=== PATIENT | male | born 1955 | race African-American/Black ===

== ENCOUNTER 2017-05-03 18:50 | Emergency (ER) | payer MEDICAID ==
[~2017-05-03 18:50] MED LIST: ASPI-1159 PO; BLOO-1113; GABAPENTIN; HUMALOG; SYRI-219
== END 2017-05-03 21:55 | disposition left against medical advice (07) ==
LOC: ER 21:01
DX: Z53.21 Procedure and treatment not carried out due to patient leaving prior to being seen by health care provider (principal)

== ENCOUNTER 2018-08-14 16:11 | Inpatient (IN) | payer MEDICAID ==
[~2018-08-14] VITALS: Ht 175.3 cm; Wt 68.0 kg
[~2018-08-14 16:11] MED LIST changes: -ASPI-1159 PO; +ASPI-1393 PO
[2018-08-14] MEDS ORDERED: SODIUM CHLORIDE 0.9% 1,000 ML IV ONE (16:49)
[2018-08-14] MEDS ORDERED: MORPHINE SULFATE 4 MG/ML CPJ (NOT FOR IM USE) IV STA (16:49)
[2018-08-14] MEDS ORDERED: ONDANSETRON HCL 4MG/2ML INJ IV STA (16:49)
[2018-08-14] MEDS ORDERED: FAMOTIDINE 20MG/2ML VIAL IV ONE (17:00)
[2018-08-14 17:11] LABS: BASOPHILS % 0.5 % (0.0-2.0); HEMATOCRIT. 45.2 % (42.0-52.0); HEMOGLOBIN. 15.2 g/dL (14.0-18.0); LYMPHOCYTES % 7.8 % (20.0-50.0); MEAN CORPUSCULAR HEMOGLOBIN 28.5 pg (28.0-32.0); MEAN CORPUSCULAR VOLUME 84.9 fL (80.0-94.0); MONOCYTES % 6.3 % (2.0-8.0); NEUTROPHILS % 85.4 % (40.0-76.0); PLATELET 229 x1000/uL (130-400); RED BLOOD CELL COUNT 5.32 mill/uL (4.7-6.1); RED CELL DISTRIBUTION WIDTH 14.8 % (11.6-14.6)
[2018-08-14 17:13] LABS: CHLORIDE 96 mEq/L (98-107); INR 1.1; PROTHROMBIN TIME 11.4 sec (9.6-11.0)
[2018-08-14 17:17] LABS: ETHANOL BLOOD < 10 mg/dL
[2018-08-14 19:10] LABS: CLARITY URINE CLEAR (CLEAR); COLOR URINE YELLOW (YELLOW); KETONES URINE NEGATIVE (NEGATIVE); LEUKOCYTE ESTERASE URINE NEGATIVE (NEGATIVE); NITRITE URINE NEGATIVE (NEGATIVE); OCCULT BLOOD URINE 3+ (NEGATIVE); PROTEIN URINE 3+ (NEGATIVE); SPECIFIC GRAVITY URINE 1.009 (1.005-1.030); UROBILINOGEN URINE 0.2 E.U./dL (0.2-1.0)
[2018-08-14 19:25] LABS: *AMPHETAMINES SCREEN URINE NEGATIVE (NEGATIVE); *BARBITURATES SCREEN URINE NEGATIVE (NEGATIVE); *BENZODIAZEPINES SCREEN URINE NEGATIVE (NEGATIVE); *COCAINE SCREEN URINE NEGATIVE (NEGATIVE); METHADONE URINE SCREEN NEGATIVE (NEGATIVE)
[2018-08-14 19:26] LABS: CANNABINOID URINE SCREEN PRESUMTIVE POSITIVE (NEGATIVE); OPIATES URINE SCREEN PRESUMTIVE POSITIVE (NEGATIVE); PHENCYCLIDINE URINE SCREEN NEGATIVE (NEGATIVE)
[2018-08-14] MEDS ORDERED: NA PHOS,M-B/NA PHOS,DI-BA ENEMA 118ML PR PRN (19:45)
[2018-08-14] MEDS ORDERED: DEXTROSE 50% WATER 50ML SYRINGE IV PRN (19:45)
[2018-08-14] MEDS ORDERED: DIPHENHYDRAMINE 50MG/ML VIAL IV PRN (19:45)
[2018-08-14] MEDS ORDERED: LORAZEPAM 2MG/ML CPJ IV PRN (19:45)
[2018-08-14] MEDS ORDERED: ACETAMINOPHEN 325MG TABLET PO PRN (19:45)
[2018-08-14] MEDS ORDERED: IPRATROPIUM/ALBUTEROL 0.5-3(2.5)MG/3ML NEB INH PRN (19:45)
[2018-08-14] MEDS ORDERED: MAGNESIUM/ALUMINUM HYDROXIDE/SIMETHICONE 30ML UDC PO PRN (19:45)
[2018-08-14] MEDS ORDERED: GUAIFENESIN 200MG/10ML SUGAR FREE UDC PO PRN (19:45)
[2018-08-14] MEDS ORDERED: DOCUSATE SODIUM 100MG CAPSULE PO PRN (19:45)
[2018-08-14] MEDS ORDERED: HYDRALAZINE 20MG/ML VIAL IV PRN (20:00)
[2018-08-14] MEDS: HYDROCODONE/ACETAMINOPHEN 10/325MG TABLET PO PRN (20:09)
[2018-08-14 20:50] VITALS: BP 170/90
[2018-08-14] MEDS: INSULIN LISPRO 100 UNITS/ML SUBCUT SCH (21:00)
[2018-08-14 21:28] VITALS: BP 170/90
[2018-08-14] MEDS ORDERED: POTASSIUM CHLORIDE 20MEQ TABLET SR PO NR (21:30)
[2018-08-14] MEDS: CLONIDINE 0.1MG TABLET PO PRN (21:54)
[2018-08-14] MEDS: BLOOD SUGAR DIAGNOSTIC STRIP TEST SCH (21:54)
[2018-08-14] MEDS: SODIUM CHLORIDE 0.45% 1,000 ML IV SCH (22:44)
[2018-08-14] MEDS: SODIUM CHLORIDE 0.9% INJ 3ML FLUSH IVF SCH (22:44)
[2018-08-14] MEDS: LEVOFLOXACIN 500MG PREMIX 100 ML IV SCH (22:44)
[2018-08-15] VITALS (8 sets, daily range): BP systolic 107–197; BP diastolic 59–105
[2018-08-15] MEDS: BLOOD SUGAR DIAGNOSTIC STRIP TEST SCH ×4 (06:04→21:12)
[2018-08-15] MEDS: SODIUM CHLORIDE 0.9% INJ 3ML FLUSH IVF SCH ×3 (06:04→21:12)
[2018-08-15] MEDS: INSULIN LISPRO 100 UNITS/ML SUBCUT SCH ×4 (06:04→21:00)
[2018-08-15 06:16] LABS: BASOPHILS % 0.5 % (0.0-2.0); EOSINOPHILS % 0.3 % (0.0-5.0); HEMATOCRIT. 38.5 % (42.0-52.0); HEMOGLOBIN. 12.5 g/dL (14.0-18.0); LYMPHOCYTES % 19.8 % (20.0-50.0); MEAN CORPUSCULAR HEMOGLOBIN 28.1 pg (28.0-32.0); MEAN CORPUSCULAR VOLUME 86.2 fL (80.0-94.0); MEAN PLATELET VOLUME 9.4 fl (7.4-10.4); MONOCYTES % 9.7 % (2.0-8.0); NEUTROPHILS % 69.7 % (40.0-76.0); PLATELET 193 x1000/uL (130-400); RED BLOOD CELL COUNT 4.47 mill/uL (4.7-6.1); RED CELL DISTRIBUTION WIDTH 15.1 % (11.6-14.6)
[2018-08-15 06:26] LABS: CHLORIDE 104 mEq/L (98-107)
[2018-08-15 06:43] LABS: CREATINE KINASE MB FRACTION 4.7 ng/mL (0.5-3.6)
[2018-08-15 06:44] LABS: T4 FREE 1.32 ng/dL (0.76-1.46)
[2018-08-15 06:46] LABS: CREATINE KINASE 451 IU/L (39-308); LDL CHOLESTEROL 99 mg/dL (5-100)
[2018-08-15 06:47] LABS: HDL CHOLESTEROL 61 mg/dL (40-59)
[2018-08-15] MEDS: CLONIDINE 0.1MG TABLET PO PRN (08:06)
[2018-08-15] MEDS: ONDANSETRON HCL 4MG/2ML INJ IV PRN ×2 (08:45→22:17)
[2018-08-15] MEDS: HYDRALAZINE 20MG/ML VIAL IV PRN (11:33)
[2018-08-15] MEDS: SODIUM CHLORIDE 0.45% 1,000 ML IV SCH (16:39)
[2018-08-15] MEDS: LEVOFLOXACIN 500MG PREMIX 100 ML IV SCH (22:03)
[2018-08-15] MEDS: HYDROMORPHONE HCL/PF 2MG/ML CPJ IV PRN (22:17)
[2018-08-16] MEDS: CLONIDINE 0.1MG TABLET PO PRN (03:50)
[2018-08-16 03:55] VITALS: BP 160/64
[2018-08-16 05:52] LABS: BASOPHILS % 0.7 % (0.0-2.0); EOSINOPHILS % 0.8 % (0.0-5.0); HEMATOCRIT. 39.8 % (42.0-52.0); LYMPHOCYTES % 41.5 % (20.0-50.0); MEAN CORPUSCULAR HEMOGLOBIN 28.3 pg (28.0-32.0); MEAN CORPUSCULAR VOLUME 86.2 fL (80.0-94.0); MEAN PLATELET VOLUME 9.2 fl (7.4-10.4); MONOCYTES % 9.5 % (2.0-8.0); NEUTROPHILS % 47.5 % (40.0-76.0); PLATELET 207 x1000/uL (130-400); RED BLOOD CELL COUNT 4.62 mill/uL (4.7-6.1)
[2018-08-16] MEDS: SODIUM CHLORIDE 0.9% INJ 3ML FLUSH IVF SCH ×3 (06:00→21:12)
[2018-08-16] MEDS: BLOOD SUGAR DIAGNOSTIC STRIP TEST SCH ×4 (07:07→20:55)
[2018-08-16 07:56] LABS: CHLORIDE 104 mEq/L (98-107)
[2018-08-16 08:00] VITALS: BP 129/78
[2018-08-16] MEDS: INSULIN LISPRO 100 UNITS/ML SUBCUT SCH ×4 (08:10→20:55)
[2018-08-16 12:00] VITALS: BP 111/70
[2018-08-16] MEDS: SODIUM CHLORIDE 0.45% 1,000 ML IV SCH (13:15)
[2018-08-16] MEDS: ONDANSETRON HCL 4MG/2ML INJ IV PRN (13:16)
[2018-08-16] MEDS: HYDROMORPHONE HCL/PF 2MG/ML CPJ IV PRN ×2 (13:17→21:12)
[2018-08-16] MEDS: FAMOTIDINE 20MG/2ML VIAL IV SCH (15:34)
[2018-08-16 16:00] VITALS: BP 123/70
[2018-08-16 20:00] VITALS: BP 149/66
[2018-08-16] MEDS: LEVOFLOXACIN 500MG PREMIX 100 ML IV SCH (22:08)
[2018-08-17] VITALS: BP 143/78
[2018-08-17 04:00] VITALS: BP 175/86
[2018-08-17] MEDS: HYDRALAZINE 20MG/ML VIAL IV PRN ×2 (05:01→12:17)
[2018-08-17] MEDS: SODIUM CHLORIDE 0.9% INJ 3ML FLUSH IVF SCH ×3 (05:01→21:11)
[2018-08-17 06:06] LABS: BASOPHILS % 0.6 % (0.0-2.0); EOSINOPHILS % 1.9 % (0.0-5.0); HEMATOCRIT. 38.1 % (42.0-52.0); HEMOGLOBIN. 12.8 g/dL (14.0-18.0); MEAN CORPUSCULAR HEMOGLOBIN 28.8 pg (28.0-32.0); MEAN CORPUSCULAR VOLUME 85.4 fL (80.0-94.0); MONOCYTES % 9.4 % (2.0-8.0); NEUTROPHILS % 43.1 % (40.0-76.0); PLATELET 204 x1000/uL (130-400); RED BLOOD CELL COUNT 4.45 mill/uL (4.7-6.1); RED CELL DISTRIBUTION WIDTH 14.7 % (11.6-14.6)
[2018-08-17] MEDS: BLOOD SUGAR DIAGNOSTIC STRIP TEST SCH ×4 (06:41→21:09)
[2018-08-17 06:54] LABS: CHLORIDE 107 mEq/L (98-107)
[2018-08-17 08:00] VITALS: BP 181/68
[2018-08-17] MEDS: INSULIN LISPRO 100 UNITS/ML SUBCUT SCH ×4 (08:10→21:00)
[2018-08-17] MEDS: FAMOTIDINE 20MG/2ML VIAL IV SCH (09:13)
[2018-08-17] MEDS: SODIUM CHLORIDE 0.45% 1,000 ML IV SCH (09:18)
[2018-08-17] MEDS: HYDROCODONE/ACETAMINOPHEN 10/325MG TABLET PO PRN ×2 (10:37→21:09)
[2018-08-17 12:00] VITALS: BP 132/81
[2018-08-17 16:00] VITALS: BP 149/70
[2018-08-17 20:00] VITALS: BP 144/96
[2018-08-17 20:21] LABS: CREATINE KINASE 66 IU/L (39-308)
[2018-08-17 20:22] LABS: CREATINE KINASE MB FRACTION < 1.0 ng/mL (0.5-3.6)
[2018-08-17 20:23] LABS: T4 FREE 1.3 ng/dL (0.76-1.46)
[2018-08-17] MEDS: LEVOFLOXACIN 500MG PREMIX 100 ML IV SCH (21:09)
[2018-08-18] VITALS: BP 150/66
[2018-08-18 00:08] LABS: CREATINE KINASE 70 IU/L (39-308)
[2018-08-18 00:09] LABS: CREATINE KINASE MB FRACTION < 1.0 ng/mL (0.5-3.6)
[2018-08-18 04:00] VITALS: BP 163/88
[2018-08-18] MEDS: SODIUM CHLORIDE 0.9% INJ 3ML FLUSH IVF SCH ×3 (05:32→21:36)
[2018-08-18] MEDS: SODIUM CHLORIDE 0.45% 1,000 ML IV SCH (05:32)
[2018-08-18 06:50] LABS: CREATINE KINASE 61 IU/L (39-308)
[2018-08-18 06:51] LABS: CREATINE KINASE MB FRACTION < 1.0 ng/mL (0.5-3.6)
[2018-08-18] MEDS: BLOOD SUGAR DIAGNOSTIC STRIP TEST SCH ×4 (07:46→21:00)
[2018-08-18] MEDS: INSULIN LISPRO 100 UNITS/ML SUBCUT SCH ×4 (07:46→21:00)
[2018-08-18 08:00] VITALS: BP 166/83
[2018-08-18] MEDS: FAMOTIDINE 20MG/2ML VIAL IV SCH (09:10)
[2018-08-18] MEDS ORDERED: REGADENOSON 0.4 MG/5 ML IV NR (11:45)
[2018-08-18 12:00] VITALS: BP 176/74
[2018-08-18] MEDS: HYDROCODONE/ACETAMINOPHEN 10/325MG TABLET PO PRN (15:12)
[2018-08-18] MEDS: HYDRALAZINE 20MG/ML VIAL IV PRN (15:15)
[2018-08-18 16:00] VITALS: BP 164/74
[2018-08-18 20:00] VITALS: BP 153/70
[2018-08-18] MEDS: LEVOFLOXACIN 500MG PREMIX 100 ML IV SCH (21:36)
[2018-08-19] VITALS: BP 152/56
[2018-08-19] MEDS: SODIUM CHLORIDE 0.45% 1,000 ML IV SCH ×2 (00:54→21:33)
[2018-08-19 04:00] VITALS: BP 130/68
[2018-08-19] MEDS: SODIUM CHLORIDE 0.9% INJ 3ML FLUSH IVF SCH ×3 (06:35→21:32)
[2018-08-19] MEDS: BLOOD SUGAR DIAGNOSTIC STRIP TEST SCH ×4 (06:35→21:05)
[2018-08-19 08:00] VITALS: BP 171/83
[2018-08-19] MEDS: INSULIN LISPRO 100 UNITS/ML SUBCUT SCH ×4 (08:10→21:00)
[2018-08-19] MEDS: FAMOTIDINE 20MG/2ML VIAL IV SCH (08:38)
[2018-08-19] MEDS: HYDROMORPHONE HCL/PF 2MG/ML CPJ IV PRN (09:04)
[2018-08-19 12:00] VITALS: BP 145/70
[2018-08-19 16:00] VITALS: BP 168/93
[2018-08-19 20:00] VITALS: BP 125/73
[2018-08-19] MEDS: LEVOFLOXACIN 500MG PREMIX 100 ML IV SCH (21:32)
[2018-08-20] VITALS (10 sets, daily range): BP systolic 102–176; BP diastolic 64–85
[2018-08-20] MEDS: SODIUM CHLORIDE 0.9% INJ 3ML FLUSH IVF SCH ×3 (05:44→22:00)
[2018-08-20] MEDS: HYDRALAZINE 20MG/ML VIAL IV PRN (05:58)
[2018-08-20 06:08] LABS: BASOPHILS % 0.4 % (0.0-2.0); EOSINOPHILS % 2.9 % (0.0-5.0); HEMOGLOBIN. 12.6 g/dL (14.0-18.0); LYMPHOCYTES % 39.2 % (20.0-50.0); MEAN CORPUSCULAR HEMOGLOBIN 28.5 pg (28.0-32.0); MEAN CORPUSCULAR VOLUME 86.4 fL (80.0-94.0); MEAN PLATELET VOLUME 9.1 fl (7.4-10.4); MONOCYTES % 8.9 % (2.0-8.0); NEUTROPHILS % 48.6 % (40.0-76.0); PLATELET 218 x1000/uL (130-400); RED CELL DISTRIBUTION WIDTH 14.5 % (11.6-14.6)
[2018-08-20] MEDS: BLOOD SUGAR DIAGNOSTIC STRIP TEST SCH ×4 (06:43→23:02)
[2018-08-20 07:10] LABS: CHLORIDE 108 mEq/L (98-107)
[2018-08-20] MEDS: INSULIN LISPRO 100 UNITS/ML SUBCUT SCH ×4 (08:10→23:06)
[2018-08-20] MEDS ORDERED: REGADENOSON 0.4 MG/5 ML IV ONE (08:42)
[2018-08-20] MEDS: FAMOTIDINE 20MG/2ML VIAL IV SCH (10:02)
[2018-08-20] MEDS: AMLODIPINE 10MG TABLET PO SCH (13:17)
[2018-08-20] MEDS: HYDRALAZINE HCL 50MG TABLET PO SCH ×2 (14:36→22:59)
[2018-08-20] MEDS: SODIUM CHLORIDE 0.45% 1,000 ML IV SCH (15:52)
[2018-08-20] MEDS: HYDROCODONE/ACETAMINOPHEN 5/325MG TABLET PO PRN (18:31)
[2018-08-20] MEDS: LEVOFLOXACIN 500MG PREMIX 100 ML IV SCH (22:00)
[2018-08-21] VITALS: BP 141/64
[2018-08-21 04:00] VITALS: BP 151/78
[2018-08-21] MEDS: SODIUM CHLORIDE 0.9% INJ 3ML FLUSH IVF SCH ×2 (06:00→14:00)
[2018-08-21] MEDS: HYDRALAZINE HCL 50MG TABLET PO SCH ×2 (06:38→13:56)
[2018-08-21] MEDS: BLOOD SUGAR DIAGNOSTIC STRIP TEST SCH ×2 (06:38→12:40)
[2018-08-21] MEDS: INSULIN LISPRO 100 UNITS/ML SUBCUT SCH ×2 (06:41→13:10)
[2018-08-21 08:00] VITALS: BP 138/69
[2018-08-21] MEDS: AMLODIPINE 10MG TABLET PO SCH (08:55)
[2018-08-21] MEDS: HYDROCODONE/ACETAMINOPHEN 5/325MG TABLET PO PRN (08:56)
[2018-08-21 12:00] VITALS: BP 173/82
[2018-08-21 13:20] VITALS: BP 141/75
[2018-08-21] MEDS: SODIUM CHLORIDE 0.45% 1,000 ML IV SCH (13:30)
[2018-08-21] MEDS ORDERED: FAMOTIDINE 20MG TABLET PO SCH (21:00)
== END 2018-08-21 17:04 | disposition home or self-care (01) | DRG 253 ==
LOC: ER 16:11 → EDBEDREQ 16:57 → 5WST 19:07 → EDBEDREQTM 19:09 → EDBEDREQ 19:09 → ENRESERV 19:26 → 7WST 08-15 20:30
PROVIDERS: ADMIT Internal Medicine; ATTEND Internal Medicine
DX: K92.0 Hematemesis (principal); R65.10 Systemic inflammatory response syndrome (SIRS) of non-infectious origin without acute organ dysfunction; E87.1 Hypo-osmolality and hyponatremia; E11.9 Type 2 diabetes mellitus without complications; D64.9 Anemia, unspecified; B18.2 Chronic viral hepatitis C; E78.5 Hyperlipidemia, unspecified; N39.0 Urinary tract infection, site not specified; E87.6 Hypokalemia; N20.0 Calculus of kidney; I10 Essential (primary) hypertension; G89.29 Other chronic pain; F19.90 Other psychoactive substance use, unspecified, uncomplicated; R00.1 Bradycardia, unspecified; F17.200 Nicotine dependence, unspecified, uncomplicated; Z86.19 Personal history of other infectious and parasitic diseases; Z85.46 Personal history of malignant neoplasm of prostate; Z98.42 Cataract extraction status, left eye; Z98.41 Cataract extraction status, right eye; Z79.899 Other long term (current) drug therapy; Z79.82 Long term (current) use of aspirin; Z79.84 Long term (current) use of oral hypoglycemic drugs
CPT/HCPCS: 36415; 71045; 74176; 78452; 80048; 80061; 80076; 80305; 80320; 82270; 82550; 82553; 82962; 83036; 83880; 84439; 84443; 84484; 85379; 93005; 93017; 93306; 93970; 96374; 96375; 99285; A9500; J0360; J1170; J1815; J1956; J2060; J2270; J2405; J2785; J3490; J7030; G0480

== ENCOUNTER 2020-08-31 19:08 | Inpatient (IN) | payer MEDICAID ==
[~2020-08-31] VITALS: Ht 180.3 cm; Wt 73.9 kg
[~2020-08-31 19:08] MED LIST changes: -ASPI-1393 PO; +ASPI-1497 PO; -BLOO-1113; -GABAPENTIN; -HUMALOG; -SYRI-219
[2020-08-31] MEDS ORDERED: ONDANSETRON HCL 4MG/2ML INJ IV STA ×2 (20:33→21:33)
[2020-08-31] MEDS ORDERED: SODIUM CHLORIDE 0.9% 1,000 ML IV ONE ×2 (20:45→21:45)
[2020-08-31 21:22] LABS: BASOPHILS % 0.7 % (0.0-2.0); EOSINOPHILS % 0.2 % (0.0-5.0); HEMATOCRIT. 32.6 % (42.0-52.0); LYMPHOCYTES % 8.9 % (20.0-50.0); MEAN CORPUSCULAR HEMOGLOBIN 28.3 pg (28.0-32.0); MEAN CORPUSCULAR VOLUME 83.9 fL (80.0-94.0); MEAN PLATELET VOLUME 8.1 fl (7.4-10.4); MONOCYTES % 8.3 % (2.0-8.0); NEUTROPHILS % 81.9 % (40.0-76.0); PLATELET 343 x1000/uL (130-400); RED BLOOD CELL COUNT 3.88 mill/uL (4.7-6.1)
[2020-08-31 21:27] LABS: CHLORIDE 105 mEq/L (98-107)
[2020-08-31] MEDS ORDERED: MORPHINE SULFATE 4 MG/ML CPJ (NOT FOR IM USE) IV STA (21:33)
[2020-08-31] MEDS ORDERED: HYDRALAZINE 20MG/ML VIAL IV ONE (21:45)
[2020-08-31 22:49] LABS: CLARITY URINE CLEAR (CLEAR); COLOR URINE YELLOW (YELLOW); KETONES URINE 1+ (NEGATIVE); LEUKOCYTE ESTERASE URINE NEGATIVE (NEGATIVE); NITRITE URINE NEGATIVE (NEGATIVE); OCCULT BLOOD URINE 1+ (NEGATIVE); PROTEIN URINE 3+ (NEGATIVE); SPECIFIC GRAVITY URINE 1.015 (1.005-1.030); UROBILINOGEN URINE 0.2 E.U./dL (0.2-1.0)
[2020-08-31] MEDS ORDERED: CLONIDINE 0.2MG TABLET PO ONE (23:15)
[2020-09-01] VITALS (60 sets, daily range): BP systolic 96–179; BP diastolic 53–123
[2020-09-01] MEDS ORDERED: LEVOFLOXACIN 750MG PREMIX 150 ML IV ONE (00:15)
[2020-09-01] MEDS ORDERED: HYDRALAZINE 20MG/ML VIAL IV ONE (00:15)
[2020-09-01] MEDS ORDERED: METRONIDAZOLE 500 MG PREMIX 100 ML IV ONE (00:15)
[2020-09-01] MEDS ORDERED: NITROGLYCERIN 50MG PREMIX 250 ML IV ONE ×2 (01:30→08:30)
[2020-09-01] MEDS ORDERED: HYDROMORPHONE HCL/PF 2MG/ML CPJ IV PRN (09:15)
[2020-09-01] MEDS: AMLODIPINE 10MG TABLET PO SCH (09:26)
[2020-09-01] MEDS: SODIUM CHLORIDE 0.9% 1,000 ML IV SCH ×2 (09:26→20:34)
[2020-09-01] MEDS ORDERED: DEXTROSE 50% WATER 50ML SYRINGE IV PRN (10:15)
[2020-09-01] MEDS: PIPERACILLIN/TAZOBACTAM 3.375 G in DEXT 5% WATER 100 ML IV SCH ×2 (11:02→18:20)
[2020-09-01] MEDS: LOSARTAN POTASSIUM 100 MG TABLET PO SCH (11:02)
[2020-09-01] MEDS: PANTOPRAZOLE SODIUM 40 MG/VIAL IV SCH (11:03)
[2020-09-01] MEDS ORDERED: NITROGLYCERIN 50MG PREMIX 250 ML IV PRN (11:15)
[2020-09-01] MEDS: MORPHINE SULFATE 2 MG/ML CPJ (NOT FOR IM USE) IV PRN ×3 (11:35→20:35)
[2020-09-01 12:41] LABS: BASOPHILS % 0.6 % (0.0-2.0); HEMATOCRIT. 28.9 % (42.0-52.0); HEMOGLOBIN. 9.7 g/dL (14.0-18.0); MEAN CORPUSCULAR HEMOGLOBIN 28.2 pg (28.0-32.0); MEAN CORPUSCULAR VOLUME 83.6 fL (80.0-94.0); MONOCYTES % 6.4 % (2.0-8.0); PLATELET 341 x1000/uL (130-400); RED BLOOD CELL COUNT 3.46 mill/uL (4.7-6.1); RED CELL DISTRIBUTION WIDTH 14.7 % (11.6-14.6)
[2020-09-01] MEDS: BLOOD SUGAR DIAGNOSTIC STRIP TEST SCH ×3 (12:50→20:45)
[2020-09-01 12:53] LABS: CHLORIDE 102 mEq/L (98-107)
[2020-09-01] MEDS: INSULIN LISPRO 100 UNITS/ML SUBCUT SCH ×3 (13:20→20:45)
[2020-09-01 15:58] LABS: *AMPHETAMINES SCREEN URINE NEGATIVE (NEGATIVE); *BARBITURATES SCREEN URINE NEGATIVE (NEGATIVE); *BENZODIAZEPINES SCREEN URINE NEGATIVE (NEGATIVE); *COCAINE SCREEN URINE PRESUMTIVE POSITIVE (NEGATIVE); METHADONE URINE SCREEN NEGATIVE (NEGATIVE); OPIATES URINE SCREEN PRESUMTIVE POSITIVE (NEGATIVE)
[2020-09-01 15:59] LABS: CANNABINOID URINE SCREEN PRESUMTIVE POSITIVE (NEGATIVE); PHENCYCLIDINE URINE SCREEN NEGATIVE (NEGATIVE)
[2020-09-01] MEDS: ONDANSETRON HCL 4MG/2ML INJ IV PRN (20:34)
[2020-09-02] VITALS (92 sets, daily range): BP systolic 106–158; BP diastolic 54–90
[2020-09-02] MEDS: ONDANSETRON HCL 4MG/2ML INJ IV PRN ×5 (00:02→20:21)
[2020-09-02] MEDS: MORPHINE SULFATE 2 MG/ML CPJ (NOT FOR IM USE) IV PRN ×6 (00:02→20:21)
[2020-09-02] MEDS: PIPERACILLIN/TAZOBACTAM 3.375 G in DEXT 5% WATER 100 ML IV SCH ×3 (04:07→18:43)
[2020-09-02 05:44] LABS: BASOPHILS % 0.5 % (0.0-2.0); EOSINOPHILS % 0.7 % (0.0-5.0); HEMATOCRIT. 28.4 % (42.0-52.0); HEMOGLOBIN. 9.8 g/dL (14.0-18.0); LYMPHOCYTES % 22.3 % (20.0-50.0); MEAN PLATELET VOLUME 8.2 fl (7.4-10.4); MONOCYTES % 10.6 % (2.0-8.0); NEUTROPHILS % 65.9 % (40.0-76.0); PLATELET 295 x1000/uL (130-400); RED BLOOD CELL COUNT 3.38 mill/uL (4.7-6.1); RED CELL DISTRIBUTION WIDTH 15.3 % (11.6-14.6)
[2020-09-02] MEDS: BLOOD SUGAR DIAGNOSTIC STRIP TEST SCH ×4 (07:58→20:15)
[2020-09-02] MEDS: PANTOPRAZOLE SODIUM 40 MG/VIAL IV SCH (08:08)
[2020-09-02] MEDS: SODIUM CHLORIDE 0.9% 1,000 ML IV SCH ×2 (08:09→21:55)
[2020-09-02] MEDS: LOSARTAN POTASSIUM 100 MG TABLET PO SCH (08:09)
[2020-09-02] MEDS: AMLODIPINE 10MG TABLET PO SCH (08:09)
[2020-09-02] MEDS: INSULIN LISPRO 100 UNITS/ML SUBCUT SCH ×4 (08:20→20:15)
[2020-09-03] VITALS (88 sets, daily range): BP systolic 112–199; BP diastolic 59–117
[2020-09-03] MEDS: MORPHINE SULFATE 2 MG/ML CPJ (NOT FOR IM USE) IV PRN ×6 (00:38→21:06)
[2020-09-03] MEDS: ONDANSETRON HCL 4MG/2ML INJ IV PRN ×2 (00:38→05:27)
[2020-09-03] MEDS: PIPERACILLIN/TAZOBACTAM 3.375 G in DEXT 5% WATER 100 ML IV SCH ×3 (02:42→18:01)
[2020-09-03 05:25] LABS: CHLORIDE 111 mEq/L (98-107)
[2020-09-03] MEDS: BLOOD SUGAR DIAGNOSTIC STRIP TEST SCH ×4 (07:50→21:00)
[2020-09-03] MEDS: INSULIN LISPRO 100 UNITS/ML SUBCUT SCH ×4 (08:20→21:00)
[2020-09-03] MEDS: PANTOPRAZOLE SODIUM 40 MG/VIAL IV SCH (08:49)
[2020-09-03] MEDS: LOSARTAN POTASSIUM 100 MG TABLET PO SCH (08:49)
[2020-09-03] MEDS: AMLODIPINE 10MG TABLET PO SCH (08:50)
[2020-09-03] MEDS ORDERED: DIATR MEGLU/DIATRIZOATE SOLN 30ML PO SCH (09:30)
[2020-09-03] MEDS: SODIUM CHLORIDE 0.9% 1,000 ML IV SCH (11:39)
[2020-09-03] MEDS: HYDRALAZINE 20MG/ML VIAL IV PRN (11:55)
[2020-09-03] MEDS ORDERED: IOHEXOL-300 100 ML BOTTLE ONE ×2 (13:57→16:08)
[2020-09-03] MEDS ORDERED: NON FORMULARY PATIENT HOME MED PO SCH (14:15)
[2020-09-03] MEDS: CLONIDINE 0.1MG TABLET PO PRN (14:17)
[2020-09-03] MEDS: MINOXIDIL 2.5MG TABLET PO SCH ×2 (14:29→21:07)
[2020-09-03] MEDS ORDERED: LORAZEPAM 2MG/ML CPJ IV PRN (18:45)
[2020-09-03] MEDS: METOPROLOL TARTRATE 50MG TABLET PO SCH (21:06)
[2020-09-04] VITALS (86 sets, daily range): BP systolic 96–191; BP diastolic 43–110
[2020-09-04] MEDS: PIPERACILLIN/TAZOBACTAM 3.375 G in DEXT 5% WATER 100 ML IV SCH ×5 (00:13→23:58)
[2020-09-04] MEDS: SODIUM CHLORIDE 0.9% 1,000 ML IV SCH ×2 (01:07→13:33)
[2020-09-04] MEDS: MORPHINE SULFATE 2 MG/ML CPJ (NOT FOR IM USE) IV PRN ×6 (01:13→21:48)
[2020-09-04] MEDS: CLONIDINE 0.1MG TABLET PO PRN ×2 (01:13→14:15)
[2020-09-04 05:58] LABS: BASOPHILS % 0.8 % (0.0-2.0); EOSINOPHILS % 2.3 % (0.0-5.0); HEMATOCRIT. 28.3 % (42.0-52.0); HEMOGLOBIN. 9.4 g/dL (14.0-18.0); LYMPHOCYTES % 20.8 % (20.0-50.0); MEAN CORPUSCULAR HEMOGLOBIN 28.4 pg (28.0-32.0); MEAN PLATELET VOLUME 8.4 fl (7.4-10.4); MONOCYTES % 12.8 % (2.0-8.0); NEUTROPHILS % 63.3 % (40.0-76.0); PLATELET 277 x1000/uL (130-400); RED BLOOD CELL COUNT 3.33 mill/uL (4.7-6.1); RED CELL DISTRIBUTION WIDTH 14.6 % (11.6-14.6)
[2020-09-04 06:08] LABS: CHLORIDE 111 mEq/L (98-107)
[2020-09-04] MEDS: BLOOD SUGAR DIAGNOSTIC STRIP TEST SCH ×4 (06:27→21:26)
[2020-09-04] MEDS: INSULIN LISPRO 100 UNITS/ML SUBCUT SCH ×4 (06:34→21:00)
[2020-09-04] MEDS: PANTOPRAZOLE SODIUM 40 MG/VIAL IV SCH (08:57)
[2020-09-04] MEDS: LOSARTAN POTASSIUM 100 MG TABLET PO SCH (08:58)
[2020-09-04] MEDS: MINOXIDIL 2.5MG TABLET PO SCH ×2 (08:58→21:48)
[2020-09-04] MEDS: METOPROLOL TARTRATE 50MG TABLET PO SCH ×2 (08:58→21:00)
[2020-09-04] MEDS: AMLODIPINE 10MG TABLET PO SCH (08:58)
[2020-09-04] MEDS: TAMSULOSIN HCL 0.4MG SR CAPSULE PO SCH (13:33)
[2020-09-04] MEDS: HYDRALAZINE 20MG/ML VIAL IV PRN (14:10)
[2020-09-05] VITALS (28 sets, daily range): BP systolic 122–177; BP diastolic 59–95
[2020-09-05] MEDS: HYDRALAZINE 20MG/ML VIAL IV PRN (01:53)
[2020-09-05] MEDS: SODIUM CHLORIDE 0.9% 1,000 ML IV SCH ×2 (03:47→18:47)
[2020-09-05] MEDS: MORPHINE SULFATE 2 MG/ML CPJ (NOT FOR IM USE) IV PRN ×3 (04:56→20:23)
[2020-09-05] MEDS: PIPERACILLIN/TAZOBACTAM 3.375 G in DEXT 5% WATER 100 ML IV SCH ×3 (05:41→18:47)
[2020-09-05] MEDS: HYDROCODONE/ACETAMINOPHEN 10/325MG TABLET PO PRN (05:41)
[2020-09-05 06:00] LABS: BASOPHILS % 0.6 % (0.0-2.0); EOSINOPHILS % 1.9 % (0.0-5.0); HEMATOCRIT. 34.8 % (42.0-52.0); HEMOGLOBIN. 11.4 g/dL (14.0-18.0); LYMPHOCYTES % 19.6 % (20.0-50.0); MEAN CORPUSCULAR HEMOGLOBIN 28.1 pg (28.0-32.0); MEAN CORPUSCULAR VOLUME 85.5 fL (80.0-94.0); MEAN PLATELET VOLUME 8.6 fl (7.4-10.4); MONOCYTES % 9.1 % (2.0-8.0); NEUTROPHILS % 68.8 % (40.0-76.0); PLATELET 340 x1000/uL (130-400); RED BLOOD CELL COUNT 4.06 mill/uL (4.7-6.1)
[2020-09-05 06:10] LABS: CHLORIDE 110 mEq/L (98-107)
[2020-09-05] MEDS: BLOOD SUGAR DIAGNOSTIC STRIP TEST SCH ×4 (07:50→20:23)
[2020-09-05] MEDS: AMLODIPINE 10MG TABLET PO SCH (09:17)
[2020-09-05] MEDS: LOSARTAN POTASSIUM 100 MG TABLET PO SCH (09:17)
[2020-09-05] MEDS: METOPROLOL TARTRATE 50MG TABLET PO SCH ×2 (09:18→20:22)
[2020-09-05] MEDS: TAMSULOSIN HCL 0.4MG SR CAPSULE PO SCH (09:18)
[2020-09-05] MEDS: MINOXIDIL 2.5MG TABLET PO SCH ×2 (09:19→20:22)
[2020-09-05] MEDS: PANTOPRAZOLE SODIUM 40 MG/VIAL IV SCH (09:19)
[2020-09-05] MEDS: INSULIN LISPRO 100 UNITS/ML SUBCUT SCH ×3 (12:44→21:11)
[2020-09-06] VITALS: BP_SYST 129; BP_SYST 170; BP_DIAS 57; BP_DIAS 76
[2020-09-06] MEDS: PIPERACILLIN/TAZOBACTAM 3.375 G in DEXT 5% WATER 100 ML IV SCH ×3 (00:35→12:32)
[2020-09-06] MEDS: MORPHINE SULFATE 2 MG/ML CPJ (NOT FOR IM USE) IV PRN ×5 (01:00→23:42)
[2020-09-06] MEDS: HYDROCODONE/ACETAMINOPHEN 10/325MG TABLET PO PRN ×2 (03:23→20:00)
[2020-09-06 04:00] VITALS: BP 179/72
[2020-09-06] MEDS: HYDRALAZINE 20MG/ML VIAL IV PRN (06:02)
[2020-09-06] MEDS: SODIUM CHLORIDE 0.9% 1,000 ML IV SCH ×2 (06:02→19:47)
[2020-09-06] MEDS: BLOOD SUGAR DIAGNOSTIC STRIP TEST SCH ×4 (06:02→21:10)
[2020-09-06] MEDS: INSULIN LISPRO 100 UNITS/ML SUBCUT SCH ×4 (07:02→21:09)
[2020-09-06 08:00] VITALS: BP 175/85
[2020-09-06] MEDS: PANTOPRAZOLE SODIUM 40 MG/VIAL IV SCH (09:07)
[2020-09-06] MEDS: TAMSULOSIN HCL 0.4MG SR CAPSULE PO SCH (09:07)
[2020-09-06] MEDS: AMLODIPINE 10MG TABLET PO SCH (09:09)
[2020-09-06] MEDS: LOSARTAN POTASSIUM 100 MG TABLET PO SCH (09:09)
[2020-09-06] MEDS: METOPROLOL TARTRATE 50MG TABLET PO SCH ×2 (09:10→21:08)
[2020-09-06] MEDS: MINOXIDIL 2.5MG TABLET PO SCH ×2 (09:10→21:07)
[2020-09-06 12:00] VITALS: BP 142/62
[2020-09-06] MEDS ORDERED: LOPERAMIDE HCL 2MG CAPSULE PO PRN (12:30)
[2020-09-06] MEDS ORDERED: HYDRALAZINE HCL 50MG TABLET PO NR (14:30)
[2020-09-06 16:00] VITALS: BP 146/73
[2020-09-06 16:24] LABS: INR 1.1; PROTHROMBIN TIME 11.4 sec (9.6-11.0)
[2020-09-06] MEDS: VANCOMYCIN HCL 1000 MG/20 ML ORAL PO SCH ×2 (17:24→23:42)
[2020-09-06 20:00] VITALS: BP 165/79
[2020-09-06] MEDS: HYDRALAZINE HCL 50MG TABLET PO SCH (21:07)
[2020-09-07] VITALS: BP 141/79
[2020-09-07 04:00] VITALS: BP 112/76
[2020-09-07] MEDS: BLOOD SUGAR DIAGNOSTIC STRIP TEST SCH ×4 (06:07→21:16)
[2020-09-07] MEDS: INSULIN LISPRO 100 UNITS/ML SUBCUT SCH ×4 (06:16→21:16)
[2020-09-07] MEDS: VANCOMYCIN HCL 1000 MG/20 ML ORAL PO SCH ×4 (06:19→23:03)
[2020-09-07 08:00] VITALS: BP 196/92
[2020-09-07] MEDS: PANTOPRAZOLE SODIUM 40 MG/VIAL IV SCH (08:44)
[2020-09-07] MEDS: MINOXIDIL 2.5MG TABLET PO SCH ×2 (08:44→21:15)
[2020-09-07] MEDS: LOSARTAN POTASSIUM 100 MG TABLET PO SCH (08:44)
[2020-09-07] MEDS: TAMSULOSIN HCL 0.4MG SR CAPSULE PO SCH (08:44)
[2020-09-07] MEDS: HYDRALAZINE HCL 50MG TABLET PO SCH ×2 (08:44→21:15)
[2020-09-07] MEDS: METOPROLOL TARTRATE 50MG TABLET PO SCH ×2 (08:44→21:16)
[2020-09-07] MEDS: AMLODIPINE 10MG TABLET PO SCH (08:45)
[2020-09-07] MEDS: MORPHINE SULFATE 2 MG/ML CPJ (NOT FOR IM USE) IV PRN ×3 (09:18→23:39)
[2020-09-07] MEDS: SODIUM CHLORIDE 0.9% 1,000 ML IV SCH ×2 (09:18→21:27)
[2020-09-07] MEDS: LACTOBACILLUS GG CAPSULE PO SCH (10:13)
[2020-09-07 12:00] VITALS: BP 149/72
[2020-09-07] MEDS: HYDROCODONE/ACETAMINOPHEN 10/325MG TABLET PO PRN ×2 (12:37→21:20)
[2020-09-07 16:00] VITALS: BP 150/88
[2020-09-07 19:55] VITALS: BP 154/81
[2020-09-08] VITALS (44 sets, daily range): BP systolic 100–170; BP diastolic 40–84
[2020-09-08] MEDS: CLONIDINE 0.1MG TABLET PO PRN (00:42)
[2020-09-08] MEDS: VANCOMYCIN HCL 1000 MG/20 ML ORAL PO SCH ×4 (05:42→23:55)
[2020-09-08] MEDS: BLOOD SUGAR DIAGNOSTIC STRIP TEST SCH ×4 (05:57→20:11)
[2020-09-08] MEDS: INSULIN LISPRO 100 UNITS/ML SUBCUT SCH ×4 (06:15→20:21)
[2020-09-08] MEDS: HYDROCODONE/ACETAMINOPHEN 10/325MG TABLET PO PRN (06:30)
[2020-09-08 07:59] LABS: BASOPHILS % 0.9 % (0.0-2.0); HEMATOCRIT. 30.4 % (42.0-52.0); LYMPHOCYTES % 29.5 % (20.0-50.0); MEAN CORPUSCULAR HEMOGLOBIN 28.1 pg (28.0-32.0); MEAN PLATELET VOLUME 7.9 fl (7.4-10.4); MONOCYTES % 11.5 % (2.0-8.0); NEUTROPHILS % 55.1 % (40.0-76.0); PLATELET 292 x1000/uL (130-400); RED BLOOD CELL COUNT 3.58 mill/uL (4.7-6.1); RED CELL DISTRIBUTION WIDTH 14.7 % (11.6-14.6)
[2020-09-08 08:03] LABS: CHLORIDE 110 mEq/L (98-107)
[2020-09-08] MEDS ORDERED: THROMBIN (BOVINE) 5000 UNITS/VIAL TOP ONE (08:23)
[2020-09-08] MEDS ORDERED: GENTAMICIN SULF 40MG/ML 2ML VIAL ONE (08:23)
[2020-09-08] MEDS: LOSARTAN POTASSIUM 100 MG TABLET PO SCH (09:00)
[2020-09-08] MEDS: LACTOBACILLUS GG CAPSULE PO SCH (09:00)
[2020-09-08] MEDS: PANTOPRAZOLE SODIUM 40 MG/VIAL IV SCH (09:00)
[2020-09-08] MEDS: TAMSULOSIN HCL 0.4MG SR CAPSULE PO SCH (09:00)
[2020-09-08] MEDS: HYDRALAZINE HCL 50MG TABLET PO SCH ×2 (09:55→20:11)
[2020-09-08] MEDS: AMLODIPINE 10MG TABLET PO SCH (09:55)
[2020-09-08] MEDS: MINOXIDIL 2.5MG TABLET PO SCH ×2 (09:55→20:11)
[2020-09-08] MEDS: METOPROLOL TARTRATE 50MG TABLET PO SCH ×2 (09:55→20:10)
[2020-09-08] MEDS ORDERED: POTASSIUM CHLORIDE 20MEQ TABLET SR PO SCH (10:00)
[2020-09-08] MEDS ORDERED: HYDROMORPHONE HCL/PF 2MG/ML (OR) ONE (10:42)
[2020-09-08] MEDS ORDERED: ROCURONIUM BROMIDE 10MG/ML VIAL 5ML IV ONE (10:42)
[2020-09-08] MEDS ORDERED: DEXAMETHASONE 4MG/ML 1ML VIAL ONE (10:43)
[2020-09-08] MEDS ORDERED: CEFAZOLIN SODIUM 1000MG/VIAL ONE (10:58)
[2020-09-08] MEDS ORDERED: LABETALOL HCL 5MG/ML VIAL 20ML IV ONE (10:58)
[2020-09-08] MEDS ORDERED: HYDRALAZINE 20MG/ML VIAL ONE ×3 (10:58→12:56)
[2020-09-08] MEDS ORDERED: ALBUMIN HUMAN 25GM/100ML (25%) IV ONE (11:07)
[2020-09-08] MEDS ORDERED: VECURONIUM BROMIDE 10 MG/VIAL IV ONE (11:25)
[2020-09-08] MEDS: SODIUM CHLORIDE 0.9% 1,000 ML IV SCH (11:47)
[2020-09-08] MEDS ORDERED: GLYCOPYRROLATE 0.2 MG/ML 2ML VIAL ONE (12:54)
[2020-09-08] MEDS ORDERED: NALOXONE INJ IV PRN (13:45)
[2020-09-08] MEDS ORDERED: ONDANSETRON INJ IV PRN (13:45)
[2020-09-08] MEDS ORDERED: DIPHENHYDRAMINE INJ IV PRN (13:45)
[2020-09-08] MEDS ORDERED: CEFAZOLIN SODIUM 1000MG/VIAL IV SCH (14:00)
[2020-09-08] MEDS: DEXT 5%/LACTATED RINGERS 1,000 ML IV SCH ×2 (14:43→21:25)
[2020-09-08] MEDS: NICARDIPINE 100 MG in SODIUM CHLORIDE 0.9% 60 ML IV PRN (15:49)
[2020-09-08] MEDS: HYDROMORPHONE PCA 10MG/50ML IV PRN (15:58)
[2020-09-08] MEDS: DEXAMETHASONE 4MG/ML 1ML VIAL IV SCH ×2 (17:18→23:15)
[2020-09-08] MEDS: CEFAZOLIN 1000MG PREMIX 50 ML IV SCH ×2 (17:18→23:16)
[2020-09-09] VITALS (92 sets, daily range): BP systolic 103–169; BP diastolic 44–102
[2020-09-09] MEDS: SODIUM CHLORIDE 0.9% 1,000 ML IV SCH (01:07)
[2020-09-09] MEDS: NICARDIPINE 100 MG in SODIUM CHLORIDE 0.9% 60 ML IV PRN ×2 (01:10→09:28)
[2020-09-09] MEDS: ONDANSETRON HCL 4MG/2ML INJ IV PRN ×2 (04:02→10:09)
[2020-09-09] MEDS: HYDRALAZINE 20MG/ML VIAL IV PRN (04:03)
[2020-09-09 04:08] LABS: OVA & PARASITE EXAM Final report (.)
[2020-09-09] MEDS: DEXT 5%/LACTATED RINGERS 1,000 ML IV SCH ×3 (05:38→21:43)
[2020-09-09] MEDS: CEFAZOLIN 1000MG PREMIX 50 ML IV SCH ×3 (05:38→21:43)
[2020-09-09] MEDS: DEXAMETHASONE 4MG/ML 1ML VIAL IV SCH ×3 (05:38→17:18)
[2020-09-09] MEDS: VANCOMYCIN HCL 1000 MG/20 ML ORAL PO SCH ×3 (05:38→17:18)
[2020-09-09 05:49] LABS: HEMATOCRIT. 28.8 % (42.0-52.0); HEMOGLOBIN. 9.5 g/dL (14.0-18.0); MEAN CORPUSCULAR HEMOGLOBIN 27.8 pg (28.0-32.0); MEAN CORPUSCULAR VOLUME 84.1 fL (80.0-94.0); MEAN PLATELET VOLUME 8.8 fl (7.4-10.4); PLATELET 344 x1000/uL (130-400); RED BLOOD CELL COUNT 3.42 mill/uL (4.7-6.1); RED CELL DISTRIBUTION WIDTH 14.9 % (11.6-14.6)
[2020-09-09 06:03] LABS: CHLORIDE 108 mEq/L (98-107)
[2020-09-09] MEDS: BLOOD SUGAR DIAGNOSTIC STRIP TEST SCH ×4 (06:14→20:26)
[2020-09-09] MEDS: CLONIDINE 0.1MG TABLET PO PRN (06:14)
[2020-09-09] MEDS: INSULIN LISPRO 100 UNITS/ML SUBCUT SCH ×4 (06:14→20:35)
[2020-09-09] MEDS: PANTOPRAZOLE SODIUM 40 MG/VIAL IV SCH (08:24)
[2020-09-09] MEDS: LOSARTAN POTASSIUM 100 MG TABLET PO SCH (08:25)
[2020-09-09] MEDS: HYDRALAZINE HCL 50MG TABLET PO SCH ×2 (08:25→20:26)
[2020-09-09] MEDS: MINOXIDIL 2.5MG TABLET PO SCH ×2 (08:25→20:26)
[2020-09-09] MEDS: METOPROLOL TARTRATE 50MG TABLET PO SCH ×2 (08:25→20:26)
[2020-09-09] MEDS: AMLODIPINE 10MG TABLET PO SCH (08:25)
[2020-09-09] MEDS: LACTOBACILLUS GG CAPSULE PO SCH (08:25)
[2020-09-09] MEDS: TAMSULOSIN HCL 0.4MG SR CAPSULE PO SCH (08:25)
[2020-09-09] MEDS: HYDROMORPHONE PCA 10MG/50ML IV PRN (08:27)
[2020-09-09] MEDS ORDERED: DIAZEPAM 5 MG TABLET PO NR (09:30)
[2020-09-09 10:17] LABS: PLATELET ESTIMATE NORMAL
[2020-09-10] MEDS: DEXAMETHASONE 4MG/ML 1ML VIAL IV SCH ×4 (00:11→12:55)
[2020-09-10] MEDS: VANCOMYCIN HCL 1000 MG/20 ML ORAL PO SCH ×4 (00:11→12:55)
[2020-09-10 00:52] VITALS: BP 115/65
[2020-09-10 04:31] VITALS: BP 138/83
[2020-09-10] MEDS: DEXT 5%/LACTATED RINGERS 1,000 ML IV SCH (05:42)
[2020-09-10] MEDS: CEFAZOLIN 1000MG PREMIX 50 ML IV SCH (05:42)
[2020-09-10] MEDS: BLOOD SUGAR DIAGNOSTIC STRIP TEST SCH ×4 (07:20→20:46)
[2020-09-10 08:00] VITALS: BP 134/69
[2020-09-10] MEDS: ASPIRIN 81MG EC TABLET PO SCH (09:00)
[2020-09-10] MEDS: AMLODIPINE 10MG TABLET PO SCH (09:03)
[2020-09-10] MEDS: LOSARTAN POTASSIUM 100 MG TABLET PO SCH (09:04)
[2020-09-10] MEDS: TAMSULOSIN HCL 0.4MG SR CAPSULE PO SCH (09:04)
[2020-09-10] MEDS: LACTOBACILLUS GG CAPSULE PO SCH (09:04)
[2020-09-10] MEDS: METOPROLOL TARTRATE 50MG TABLET PO SCH ×2 (09:04→21:19)
[2020-09-10] MEDS: PANTOPRAZOLE SODIUM 40 MG/VIAL IV SCH (09:05)
[2020-09-10] MEDS: INSULIN LISPRO 100 UNITS/ML SUBCUT SCH ×4 (09:05→21:18)
[2020-09-10] MEDS: HYDRALAZINE HCL 50MG TABLET PO SCH ×2 (09:14→21:19)
[2020-09-10] MEDS: MINOXIDIL 2.5MG TABLET PO SCH ×2 (09:14→21:19)
[2020-09-10 12:00] VITALS: BP 149/74
[2020-09-10] MEDS: MORPHINE SULFATE 4 MG/ML CPJ (NOT FOR IM USE) IV PRN ×3 (13:12→21:19)
[2020-09-10 16:00] VITALS: BP 155/90
[2020-09-10] MEDS: SUCRALFATE 1 G/10 ML UDC PO SCH ×2 (19:00→21:18)
[2020-09-10 20:00] VITALS: BP 152/76
[2020-09-11] VITALS: BP 147/77
[2020-09-11] MEDS: VANCOMYCIN HCL 1000 MG/20 ML ORAL PO SCH ×5 (00:53→23:32)
[2020-09-11] MEDS: MORPHINE SULFATE 4 MG/ML CPJ (NOT FOR IM USE) IV PRN ×7 (00:55→23:11)
[2020-09-11 04:00] VITALS: BP 141/70
[2020-09-11] MEDS: BLOOD SUGAR DIAGNOSTIC STRIP TEST SCH ×4 (06:26→21:43)
[2020-09-11] MEDS: SUCRALFATE 1 G/10 ML UDC PO SCH ×4 (06:26→20:39)
[2020-09-11] MEDS: INSULIN LISPRO 100 UNITS/ML SUBCUT SCH ×4 (07:50→22:11)
[2020-09-11] MEDS: PANTOPRAZOLE SODIUM 40 MG/VIAL IV SCH (07:59)
[2020-09-11] MEDS: TAMSULOSIN HCL 0.4MG SR CAPSULE PO SCH (08:00)
[2020-09-11] MEDS: MINOXIDIL 2.5MG TABLET PO SCH ×2 (08:00→20:39)
[2020-09-11] MEDS: LOSARTAN POTASSIUM 100 MG TABLET PO SCH (08:00)
[2020-09-11] MEDS: LACTOBACILLUS GG CAPSULE PO SCH (08:00)
[2020-09-11] MEDS: HYDRALAZINE HCL 50MG TABLET PO SCH ×2 (08:00→20:39)
[2020-09-11] MEDS: METOPROLOL TARTRATE 50MG TABLET PO SCH ×2 (08:00→20:39)
[2020-09-11] MEDS: ASPIRIN 81MG EC TABLET PO SCH (08:00)
[2020-09-11] MEDS: AMLODIPINE 10MG TABLET PO SCH (08:01)
[2020-09-11 12:10] VITALS: BP 178/87
[2020-09-11 16:08] VITALS: BP 187/96
[2020-09-11] MEDS: CLONIDINE 0.1MG TABLET PO PRN (17:04)
[2020-09-11 18:45] VITALS: BP 170/50
[2020-09-11 20:00] VITALS: BP 170/85
[2020-09-11] MEDS ORDERED: HALOPERIDOL LACTATE 5MG/ML VIAL IM SCH (23:00)
[2020-09-12] VITALS: BP 156/64
[2020-09-12 04:00] VITALS: BP 175/85
[2020-09-12] MEDS: SUCRALFATE 1 G/10 ML UDC PO SCH ×4 (05:30→21:07)
[2020-09-12] MEDS: VANCOMYCIN HCL 1000 MG/20 ML ORAL PO SCH ×4 (05:30→23:24)
[2020-09-12] MEDS: BLOOD SUGAR DIAGNOSTIC STRIP TEST SCH ×4 (05:37→21:47)
[2020-09-12 08:00] VITALS: BP 155/84
[2020-09-12] MEDS: ASPIRIN 81MG EC TABLET PO SCH (08:44)
[2020-09-12] MEDS: INSULIN LISPRO 100 UNITS/ML SUBCUT SCH ×4 (08:44→21:53)
[2020-09-12] MEDS: PANTOPRAZOLE SODIUM 40 MG/VIAL IV SCH (08:44)
[2020-09-12] MEDS: AMLODIPINE 10MG TABLET PO SCH (08:45)
[2020-09-12] MEDS: LACTOBACILLUS GG CAPSULE PO SCH (08:45)
[2020-09-12] MEDS: TAMSULOSIN HCL 0.4MG SR CAPSULE PO SCH (08:45)
[2020-09-12] MEDS: METOPROLOL TARTRATE 50MG TABLET PO SCH ×2 (08:45→21:09)
[2020-09-12] MEDS: HYDRALAZINE HCL 50MG TABLET PO SCH ×2 (08:45→21:09)
[2020-09-12] MEDS: MINOXIDIL 2.5MG TABLET PO SCH ×2 (08:45→21:09)
[2020-09-12] MEDS: LOSARTAN POTASSIUM 100 MG TABLET PO SCH (08:45)
[2020-09-12] MEDS: MORPHINE SULFATE 4 MG/ML CPJ (NOT FOR IM USE) IV PRN ×5 (08:47→23:29)
[2020-09-12 12:07] VITALS: BP 150/73
[2020-09-12 20:00] VITALS: BP 168/92
[2020-09-13] VITALS: BP 153/78
[2020-09-13 04:00] VITALS: BP 146/80
[2020-09-13] MEDS: MORPHINE SULFATE 4 MG/ML CPJ (NOT FOR IM USE) IV PRN ×4 (04:47→16:22)
[2020-09-13] MEDS: VANCOMYCIN HCL 1000 MG/20 ML ORAL PO SCH ×3 (06:01→18:40)
[2020-09-13] MEDS: SUCRALFATE 1 G/10 ML UDC PO SCH ×4 (06:01→21:03)
[2020-09-13] MEDS: BLOOD SUGAR DIAGNOSTIC STRIP TEST SCH ×4 (06:02→21:00)
[2020-09-13 08:00] VITALS: BP 147/79
[2020-09-13] MEDS: TAMSULOSIN HCL 0.4MG SR CAPSULE PO SCH (09:13)
[2020-09-13] MEDS: ASPIRIN 81MG EC TABLET PO SCH (09:14)
[2020-09-13] MEDS: LOSARTAN POTASSIUM 100 MG TABLET PO SCH (09:14)
[2020-09-13] MEDS: AMLODIPINE 10MG TABLET PO SCH (09:14)
[2020-09-13] MEDS: LACTOBACILLUS GG CAPSULE PO SCH (09:14)
[2020-09-13] MEDS: METOPROLOL TARTRATE 50MG TABLET PO SCH ×2 (09:15→21:04)
[2020-09-13] MEDS: INSULIN LISPRO 100 UNITS/ML SUBCUT SCH ×4 (09:17→21:04)
[2020-09-13] MEDS: PANTOPRAZOLE SODIUM 40 MG/VIAL IV SCH (09:18)
[2020-09-13] MEDS: HYDRALAZINE HCL 50MG TABLET PO SCH ×2 (09:20→21:04)
[2020-09-13] MEDS: MINOXIDIL 2.5MG TABLET PO SCH ×2 (09:20→21:03)
[2020-09-13 12:00] VITALS: BP 131/72
[2020-09-13 16:00] VITALS: BP 130/73
[2020-09-13 20:00] VITALS: BP 154/95
[2020-09-13] MEDS ORDERED: MORPHINE SULFATE 2 MG/ML CPJ (NOT FOR IM USE) IV PRN (20:52)
[2020-09-14] VITALS (7 sets, daily range): BP systolic 130–173; BP diastolic 65–79
[2020-09-14] MEDS: MORPHINE SULFATE 4 MG/ML CPJ (NOT FOR IM USE) IV PRN ×6 (00:23→18:01)
[2020-09-14] MEDS: VANCOMYCIN HCL 1000 MG/20 ML ORAL PO SCH ×4 (00:27→18:05)
[2020-09-14 06:39] LABS: BASOPHILS % 0.3 % (0.0-2.0); EOSINOPHILS % 0.6 % (0.0-5.0); HEMATOCRIT. 25.7 % (42.0-52.0); HEMOGLOBIN. 8.7 g/dL (14.0-18.0); LYMPHOCYTES % 17.2 % (20.0-50.0); MEAN CORPUSCULAR HEMOGLOBIN 28.4 pg (28.0-32.0); MEAN CORPUSCULAR VOLUME 83.9 fL (80.0-94.0); MEAN PLATELET VOLUME 8.2 fl (7.4-10.4); MONOCYTES % 5.8 % (2.0-8.0); NEUTROPHILS % 76.1 % (40.0-76.0); PLATELET 213 x1000/uL (130-400); RED BLOOD CELL COUNT 3.07 mill/uL (4.7-6.1); RED CELL DISTRIBUTION WIDTH 14.2 % (11.6-14.6)
[2020-09-14] MEDS: SUCRALFATE 1 G/10 ML UDC PO SCH ×3 (06:52→18:00)
[2020-09-14 06:58] LABS: CHLORIDE 104 mEq/L (98-107)
[2020-09-14] MEDS: BLOOD SUGAR DIAGNOSTIC STRIP TEST SCH ×3 (07:02→17:31)
[2020-09-14] MEDS: INSULIN LISPRO 100 UNITS/ML SUBCUT SCH ×3 (08:51→18:00)
[2020-09-14] MEDS ORDERED: ZINC SULFATE 220 MG ( 50 ) CAPSULE PO SCH (09:00)
[2020-09-14] MEDS: AMLODIPINE 10MG TABLET PO SCH (09:30)
[2020-09-14] MEDS: ASPIRIN 81MG EC TABLET PO SCH (09:30)
[2020-09-14] MEDS: MINOXIDIL 2.5MG TABLET PO SCH (09:30)
[2020-09-14] MEDS: METOPROLOL TARTRATE 50MG TABLET PO SCH (09:31)
[2020-09-14] MEDS: LOSARTAN POTASSIUM 100 MG TABLET PO SCH (09:31)
[2020-09-14] MEDS: HYDRALAZINE HCL 50MG TABLET PO SCH (09:31)
[2020-09-14] MEDS: PANTOPRAZOLE SODIUM 40 MG/VIAL IV SCH (09:31)
[2020-09-14] MEDS: TAMSULOSIN HCL 0.4MG SR CAPSULE PO SCH (09:31)
[2020-09-14] MEDS: LACTOBACILLUS GG CAPSULE PO SCH (09:52)
[2020-09-15] MEDS ORDERED: HYDR-4346 MT (06:46)
== END 2020-09-14 18:35 | DRG 321 ==
LOC: ER 19:14 → CVICU 09-01 00:18 → EDBEDREQTM 09-01 00:23 → EDBEDREQ 09-01 00:23 → EDBEDREQSVC 09-01 00:23 → EDBEDREQDT 09-01 00:23 → ENRESERV 09-01 07:43 → 5WST 09-05 07:51 → MICUSO 09-08 14:16 → 6WST 09-09 22:30
PROVIDERS: ADMIT Internal Medicine; ATTEND Internal Medicine
PROC: 0RG2071 Fusion of 2 or more Cervical Vertebral Joints with Autologous Tissue Substitute, Posterior Approach, Posterior Column, Open Approach (ICD-10-PCS; principal; 2020-09-08)
PROC: 00NW0ZZ Release Cervical Spinal Cord, Open Approach (ICD-10-PCS; 2020-09-08)
PROC: 4A11X4G Monitoring of Peripheral Nervous Electrical Activity, Intraoperative, External Approach (ICD-10-PCS; 2020-09-08)
DX: M48.02 Spinal stenosis, cervical region (principal); G82.50 Quadriplegia, unspecified; G95.89 Other specified diseases of spinal cord; K80.00 Calculus of gallbladder with acute cholecystitis without obstruction; A04.72 Enterocolitis due to Clostridium difficile, not specified as recurrent; I50.32 Chronic diastolic (congestive) heart failure; I11.0 Hypertensive heart disease with heart failure; E87.1 Hypo-osmolality and hyponatremia; D64.9 Anemia, unspecified; E11.9 Type 2 diabetes mellitus without complications; G95.20 Unspecified cord compression; K44.9 Diaphragmatic hernia without obstruction or gangrene; B19.20 Unspecified viral hepatitis C without hepatic coma; F14.10 Cocaine abuse, uncomplicated; Z20.822 Contact with and (suspected) exposure to COVID-19; N20.0 Calculus of kidney; F12.90 Cannabis use, unspecified, uncomplicated; C61 Malignant neoplasm of prostate; I16.1 Hypertensive emergency; K76.0 Fatty (change of) liver, not elsewhere classified; M54.12 Radiculopathy, cervical region; N30.20 Other chronic cystitis without hematuria; Z79.82 Long term (current) use of aspirin; Z85.46 Personal history of malignant neoplasm of prostate; Z92.3 Personal history of irradiation; Z93.3 Colostomy status; R33.9 Retention of urine, unspecified
CPT/HCPCS: 36415; 71045; 72040; 72141; 72146; 72148; 74176; 74177; 76000; 76705; 78227; 80048; 80053; 80076; 80305; 81003; 82270; 82962; 83036; 83880; 84484; 85025; 86850; 86900; 87015; 87045; 87177; 87209; 87426; 87427; 87449; 87493; 88304; 88311; 89055; 93005; 93306; 93970; 95863; 95925; 95926; 95928; 95929; 97162; 97166; 97535; 99291; A9537; C1713; C9113; J0360; J0690; J1100; J1170; J1580; J1630; J1815; J1956; J2060; J2270; J2405; J2543; J3370; J3490; J7030; J7050; J7060; J7121; P9047; Q9963; Q9967; A4315

== ENCOUNTER 2020-09-15 04:24 | Emergency (ER) | payer MEDICAID ==
[~2020-09-15] VITALS: Ht 177.8 cm; Wt 64.0 kg
[2020-09-15 05:45] LABS: BASOPHILS % 0.2 % (0.0-2.0); HEMATOCRIT. 28.3 % (42.0-52.0); HEMOGLOBIN. 9.5 g/dL (14.0-18.0); LYMPHOCYTES % 11.7 % (20.0-50.0); MEAN CORPUSCULAR HEMOGLOBIN 27.9 pg (28.0-32.0); MEAN CORPUSCULAR VOLUME 83.2 fL (80.0-94.0); MEAN PLATELET VOLUME 8.1 fl (7.4-10.4); MONOCYTES % 6.4 % (2.0-8.0); NEUTROPHILS % 80.7 % (40.0-76.0); PLATELET 256 x1000/uL (130-400); RED BLOOD CELL COUNT 3.41 mill/uL (4.7-6.1); RED CELL DISTRIBUTION WIDTH 14.2 % (11.6-14.6)
[2020-09-15 05:52] LABS: CHLORIDE 105 mEq/L (98-107)
[2020-09-15] MEDS ORDERED: HYDROCODONE/ACETAMINOPHEN 5/325MG TABLET PO ONE (06:45)
[2020-09-15] MEDS ORDERED: HYDR-4346 MT (06:46)
[2020-09-15 08:12] VITALS: BP 161/80
== END 2020-09-15 08:27 | disposition home or self-care (01) ==
LOC: ER 04:24
DX: R10.30 Lower abdominal pain, unspecified (principal); R19.7 Diarrhea, unspecified; D64.9 Anemia, unspecified; I10 Essential (primary) hypertension; Z85.46 Personal history of malignant neoplasm of prostate; Z79.82 Long term (current) use of aspirin
CPT/HCPCS: 36415; 80053; 85025; 93005; 99284

== ENCOUNTER 2023-07-13 13:39 | Inpatient (IN) | payer MEDICARE, MEDICAID ==
[~2023-07-13] VITALS: Ht 177.8 cm; Wt 71.7 kg
[~2023-07-13 13:39] MED LIST changes: +ATOR20TA PO; +CARV12.545 PO; +DOCU-138 PO; +FAMO20TA8 PO; +GABA-534 PO; +HYDR-4346 MT; +HYDR100T26 PO; +LOSA-415 PO; +METF-414 PO
[2023-07-13] MEDS: ONDANSETRON HCL 4MG/2ML INJ IV STA (14:39)
[2023-07-13] MEDS: SODIUM CHLORIDE 0.9% 1,000 ML IV ONE ×2 (14:39→16:47)
[2023-07-13 15:00] LABS: CARBON DIOXIDE 16 mEq/L (21-32); CHLORIDE 105 mEq/L (98-107); POTASSIUM 3.2 mEq/L (3.5-5.1); SODIUM 133 mEq/L (136-145)
[2023-07-13 15:01] LABS: CALCIUM 9.5 mg/dL (8.7-10.4)
[2023-07-13 15:04] LABS: PROTHROMBIN TIME 10.9 sec (9.6-11.0)
[2023-07-13 15:05] LABS: CREATININE 1.1 mg/dL (0.6-1.3); GLUCOSE 256 mg/dL (70-105)
[2023-07-13 15:06] LABS: UREA NITROGEN BLOOD 24 mg/dL (9-23)
[2023-07-13 15:07] LABS: ALANINE AMINOTRANSFERASE 36 IU/L (10-49); LACTIC ACID 2.7 mmol/L (0.4-2.0)
[2023-07-13 15:08] LABS: ALBUMIN 4.7 g/dL (3.2-4.8); ASPARTATE AMINOTRANSFERASE 42 IU/L (<34); BILIRUBIN TOTAL 0.5 mg/dL (0.1-1.0); PROTEIN TOTAL 8.1 g/dL (6.0-8.3)
[2023-07-13 15:15] LABS: TROPONIN I HIGH SENSITIVITY < 4 ng/L (3.0-53)
[2023-07-13 15:17] LABS: EOSINOPHILS % 0.2 % (0.0-5.0); HEMOGLOBIN. 11.2 g/dL (14.0-18.0); LYMPHOCYTES % 14.4 % (20.0-50.0); MEAN CORPUSCULAR HEMOGLOBIN 27.4 pg (28.0-32.0); MEAN PLATELET VOLUME 8.9 fl (7.4-10.4); MONOCYTES % 4.2 % (2.0-8.0); NEUTROPHILS % 80.2 % (40.0-76.0); PLATELET 304 x1000/uL (130-400); RED CELL DISTRIBUTION WIDTH 14.6 % (11.6-14.6); WHITE BLOOD COUNT 7.6 x1000/uL (4.5-11.0)
[2023-07-13] MEDS: METOCLOPRAMIDE HCL 10MG/2ML VIAL IV ONE (15:50)
[2023-07-13] MEDS: MORPHINE SULFATE 4 MG/ML INJ (FOR IV/IM USE) IV ONE (16:25)
[2023-07-13] MEDS: HYDRALAZINE 20MG/ML VIAL IV PRN ×2 (16:47→20:51)
[2023-07-13 17:14] LABS: TROPONIN I HIGH SENSITIVITY 4 ng/L (3.0-53)
[2023-07-13] MEDS ORDERED: MORPHINE SULFATE 2 MG/ML CPJ (NOT FOR IM USE) IV PRN (19:15)
[2023-07-13] MEDS ORDERED: ACETAMINOPHEN 650MG/20.3ML UDC GT PRN (19:15)
[2023-07-13] MEDS ORDERED: SODIUM CHLORIDE 0.9% 1,000 ML IV SCH (19:15)
[2023-07-13] MEDS: HYDRALAZINE HCL 100MG TABLET PO SCH (19:15)
[2023-07-13] MEDS ORDERED: NALOXONE HCL 0.4MG/ML VIAL IV PRN (19:30)
[2023-07-13] MEDS: CARVEDILOL 6.25 MG TABLET PO SCH (20:10)
[2023-07-13] MEDS: ATORVASTATIN CALCIUM 20MG TABLET PO SCH (20:10)
[2023-07-13] MEDS: ENOXAPARIN 40MG/0.4ML SYR SUBCUT SCH (20:11)
[2023-07-13] MEDS: PANTOPRAZOLE SODIUM 40 MG/VIAL IV SCH (20:44)
[2023-07-13] MEDS ORDERED: HEPARIN 5000 UNITS/ML VIAL SUBCUT SCH (21:00)
[2023-07-13] MEDS ORDERED: GABAPENTIN 100MG CAPSULE PO PRN (22:00)
[2023-07-13] MEDS ORDERED: HYDRALAZINE HCL 100MG TABLET PO SCH (22:00)
[2023-07-13 22:24] LABS: CHLORIDE 105 mEq/L (98-107); POTASSIUM 3.9 mEq/L (3.5-5.1); SODIUM 135 mEq/L (136-145)
[2023-07-13 22:25] LABS: CALCIUM 9.4 mg/dL (8.7-10.4); CARBON DIOXIDE 20 mEq/L (21-32)
[2023-07-13 22:30] LABS: GLUCOSE 270 mg/dL (70-105); UREA NITROGEN BLOOD 24 mg/dL (9-23)
[2023-07-13] MEDS: LABETALOL 5MG/ML SYR 20 MG/4 ML SYRINGE IV ONE (22:54)
[2023-07-14] MEDS: NIFEDIPINE XL 60MG TAB PO SCH (00:45)
[2023-07-14 02:00] VITALS: BP 238/132; PULSE 114; RESP 15; RESP 16; TEMP 98; TEMP 98.6
[2023-07-14 04:00] VITALS: BP 219/115; PULSE 119; RESP 15; TEMP 97.6
[2023-07-14] MEDS ORDERED: DEXTROSE 50% WATER 50ML SYRINGE IV PRN (05:45)
[2023-07-14] MEDS: BLOOD SUGAR DIAGNOSTIC STRIP TEST SCH (05:50)
[2023-07-14 06:27] LABS: BASOPHILS % 0.7 % (0.0-2.0); HEMATOCRIT. 36.9 % (42.0-52.0); LYMPHOCYTES % 13.1 % (20.0-50.0); MEAN CORPUSCULAR HEMOGLOBIN 27.2 pg (28.0-32.0); MEAN CORPUSCULAR HGB CONC 32.5 g/dL (31.0-37.0); MEAN CORPUSCULAR VOLUME 83.7 fL (80.0-94.0); MEAN PLATELET VOLUME 9.4 fl (7.4-10.4); MONOCYTES % 3.1 % (2.0-8.0); NEUTROPHILS % 83.1 % (40.0-76.0); PLATELET 294 x1000/uL (130-400); RED CELL DISTRIBUTION WIDTH 14.7 % (11.6-14.6); WHITE BLOOD COUNT 7.5 x1000/uL (4.5-11.0)
[2023-07-14 06:51] LABS: ALANINE AMINOTRANSFERASE 31 IU/L (10-49); CALCIUM 9.7 mg/dL (8.7-10.4); CARBON DIOXIDE 19 mEq/L (21-32); CHLORIDE 103 mEq/L (98-107); POTASSIUM 4.1 mEq/L (3.5-5.1); SODIUM 133 mEq/L (136-145)
[2023-07-14 06:52] LABS: ALBUMIN 4.4 g/dL (3.2-4.8)
[2023-07-14 06:56] LABS: ASPARTATE AMINOTRANSFERASE 37 IU/L (<34); CREATININE 1.2 mg/dL (0.6-1.3); GLUCOSE 223 mg/dL (70-105)
[2023-07-14 06:57] LABS: BILIRUBIN TOTAL 0.4 mg/dL (0.1-1.0); UREA NITROGEN BLOOD 21 mg/dL (9-23)
[2023-07-14 06:58] LABS: PROTEIN TOTAL 7.4 g/dL (6.0-8.3)
[2023-07-14 08:00] VITALS: BP 170/130; PULSE 125; RESP 20; TEMP 98.3
[2023-07-14] MEDS: ONDANSETRON HCL 4MG/2ML INJ IV PRN (09:44)
[2023-07-14] MEDS: LOSARTAN 100 MG TABLET PO SCH (09:45)
[2023-07-14 11:33] LABS: CREATINE KINASE 73 IU/L (46-171)
[2023-07-14 12:00] VITALS: BP 105/54; PULSE 80; RESP 22; TEMP 98
[2023-07-14] MEDS: INSULIN LISPRO 100 UNITS/ML SUBCUT SCH (12:20)
[2023-07-14 16:00] VITALS: BP 103/69; PULSE 85; RESP 20; TEMP 98
[2023-07-14 18:15] LABS: CLARITY URINE CLEAR (CLEAR); COLOR URINE YELLOW (YELLOW); GLUCOSE URINE 3+ (NEGATIVE); KETONES URINE NEGATIVE (NEGATIVE); LEUKOCYTE ESTERASE URINE NEGATIVE (NEGATIVE); NITRITE URINE NEGATIVE (NEGATIVE); OCCULT BLOOD URINE NEGATIVE (NEGATIVE); PH URINE 5.5 (4.5-8.0); PROTEIN URINE 2+ (NEGATIVE)
[2023-07-14 18:16] LABS: SODIUM URINE RANDOM < 10 mEq/L
[2023-07-14 18:22] LABS: *AMPHETAMINES SCREEN URINE NEGATIVE (NEGATIVE); *BARBITURATES SCREEN URINE NEGATIVE (NEGATIVE); *BENZODIAZEPINES SCREEN URINE NEGATIVE (NEGATIVE); *COCAINE SCREEN URINE PRESUMPTIVE POSITIVE (NEGATIVE); METHADONE URINE SCREEN Neg (NEGATIVE); OPIATES URINE SCREEN PRESUMPTIVE POSITIVE (NEGATIVE)
[2023-07-14 18:23] LABS: CANNABINOID URINE SCREEN PRESUMPTIVE POSITIVE (NEGATIVE); ECSTASY MDMA SCREEN URINE NEGATIVE (NEGATIVE); PHENCYCLIDINE URINE SCREEN NEGATIVE (NEGATIVE)
[2023-07-14 18:26] LABS: BACTERIA URINE NONE SEEN; RBC URINE NONE SEEN /hpf (0-2); SQUAMOUS EPITHELIAL CELL URINE RARE /lpf (RARE/1+); WBC URINE NONE SEEN /hpf (0-2)
[2023-07-14 18:53] LABS: HEPATITIS B SURFACE ANTIGEN NEGATIVE (Negative)
[2023-07-14 19:13] LABS: HEPATITIS A AB IGM NEGATIVE (Negative)
[2023-07-14 19:14] LABS: HEPATITIS B CORE AB IGM NEGATIVE (Negative); HEPATITIS C AB REACTIVE (Pos) (Negative)
[2023-07-14] MEDS: HYDROCODONE/ACETAMINOPHEN 5/325MG TABLET PO PRN (19:49)
[2023-07-14 20:00] VITALS: BP 102/50; PULSE 80; RESP 20; TEMP 98.1
[2023-07-14] MEDS: CARVEDILOL 12.5MG TABLET PO SCH (21:00)
[2023-07-15] VITALS: BP 136/68; PULSE 78; RESP 20; TEMP 98
[2023-07-15 04:00] VITALS: BP 127/59; PULSE 68; RESP 21; TEMP 97.9
[2023-07-15 06:55] LABS: CARBON DIOXIDE 23 mEq/L (21-32); CHLORIDE 101 mEq/L (98-107); POTASSIUM 3.6 mEq/L (3.5-5.1); SODIUM 133 mEq/L (136-145)
[2023-07-15 06:57] LABS: CALCIUM 9.4 mg/dL (8.7-10.4)
[2023-07-15 07:01] LABS: CREATININE 1.3 mg/dL (0.6-1.3); GLUCOSE 116 mg/dL (70-105); UREA NITROGEN BLOOD 25 mg/dL (9-23)
[2023-07-15 07:11] LABS: BASOPHILS % 0.6 % (0.0-2.0); EOSINOPHILS % 0.4 % (0.0-5.0); HEMATOCRIT. 35.1 % (42.0-52.0); HEMOGLOBIN. 11.5 g/dL (14.0-18.0); LYMPHOCYTES % 39.6 % (20.0-50.0); MEAN CORPUSCULAR HEMOGLOBIN 27.1 pg (28.0-32.0); MEAN CORPUSCULAR HGB CONC 32.6 g/dL (31.0-37.0); MEAN PLATELET VOLUME 9.6 fl (7.4-10.4); MONOCYTES % 6.4 % (2.0-8.0); PLATELET 296 x1000/uL (130-400); RED BLOOD CELL COUNT 4.23 mill/uL (4.7-6.1); RED CELL DISTRIBUTION WIDTH 14.5 % (11.6-14.6); WHITE BLOOD COUNT 8.3 x1000/uL (4.5-11.0)
[2023-07-15 08:00] VITALS: BP 132/80; PULSE 64; RESP 15; TEMP 98
[2023-07-15 12:00] VITALS: BP 136/67; PULSE 67; RESP 16; TEMP 97.9
[2023-07-15] MEDS ORDERED: LACTULOSE 20G/30ML UDC PO PRN (14:00)
[2023-07-15] MEDS ORDERED: BISACODYL 10MG SUPP PR PRN (14:00)
[2023-07-15 16:00] VITALS: BP 132/70; PULSE 74; RESP 18; TEMP 97.5
[2023-07-15] MEDS: SODIUM CHLORIDE 0.9% 1,000 ML IV ONE (18:29)
[2023-07-15 20:00] VITALS: BP 109/65; PULSE 66; RESP 18; TEMP 98.5
[2023-07-16] VITALS: BP 147/83; PULSE 72; RESP 18; TEMP 98.8
[2023-07-16 04:00] VITALS: BP 127/77; PULSE 79; RESP 18; TEMP 98.9
[2023-07-16 06:28] LABS: BASOPHILS % 1.5 % (0.0-2.0); EOSINOPHILS % 0.6 % (0.0-5.0); HEMATOCRIT. 33.7 % (42.0-52.0); HEMOGLOBIN. 11.1 g/dL (14.0-18.0); LYMPHOCYTES % 38.3 % (20.0-50.0); MEAN CORPUSCULAR HGB CONC 32.8 g/dL (31.0-37.0); MEAN CORPUSCULAR VOLUME 82.4 fL (80.0-94.0); MEAN PLATELET VOLUME 9.2 fl (7.4-10.4); MONOCYTES % 8.3 % (2.0-8.0); NEUTROPHILS % 51.3 % (40.0-76.0); PLATELET 263 x1000/uL (130-400); RED BLOOD CELL COUNT 4.09 mill/uL (4.7-6.1); RED CELL DISTRIBUTION WIDTH 14.4 % (11.6-14.6); WHITE BLOOD COUNT 6.6 x1000/uL (4.5-11.0)
[2023-07-16 06:42] LABS: CARBON DIOXIDE 23 mEq/L (21-32); CHLORIDE 106 mEq/L (98-107); SODIUM 137 mEq/L (136-145)
[2023-07-16 06:43] LABS: CALCIUM 9.1 mg/dL (8.7-10.4)
[2023-07-16 06:48] LABS: CREATININE 1.3 mg/dL (0.6-1.3); GLUCOSE 156 mg/dL (70-105); TRIGLYCERIDE 178 mg/dL (0-150); UREA NITROGEN BLOOD 27 mg/dL (9-23)
[2023-07-16 06:49] LABS: CHOLESTEROL 163 mg/dL (<200); LDL CHOLESTEROL 98 mg/dL (5-100); THYROID STIMULATING HORMONE 0.67 uIU/mL (0.55-4.78)
[2023-07-16 06:50] LABS: HDL CHOLESTEROL 36 mg/dL (>55)
[2023-07-16 08:00] VITALS: BP 133/73; RESP 18; TEMP 98.2
[2023-07-16 12:00] VITALS: BP 127/70; PULSE 65; RESP 20; TEMP 98.3
[2023-07-16] MEDS: METFORMIN HCL 500MG TABLET PO SCH (13:15)
[2023-07-16] MEDS: SORBITOL 70% SOLN 30ML PO NR (14:43)
[2023-07-16 16:00] VITALS: BP 142/74; PULSE 65; RESP 18; TEMP 97
[2023-07-16 20:00] VITALS: BP 108/64; PULSE 80; RESP 18; TEMP 97.8
[2023-07-16] MEDS: SENNOSIDES 8.6MG TABLET PO SCH (20:55)
[2023-07-17] VITALS: BP 100/57; PULSE 68; RESP 18; TEMP 97.5
[2023-07-17 04:00] VITALS: BP 149/90; PULSE 79; RESP 18; TEMP 97.5
[2023-07-17 07:50] VITALS: BP 153/83; PULSE 86; RESP 18; TEMP 97.8
[2023-07-17] MEDS: DOCUSATE SODIUM 250MG CAPSULE PO SCH (08:33)
[2023-07-17 10:27] VITALS: BP 153/83; PULSE 86; TEMP 97.8; O2SAT 100
[2023-07-17 10:54] VITALS: BP 153/83; PULSE 86; RESP 18
[2023-07-17] MEDS ORDERED: NIFEDIPINE XL 60MG TAB PO SCH (13:00)
== END 2023-07-17 12:06 | disposition home or self-care (01) | DRG 816 ==
LOC: ER 14:42 → CANBEDREQ 15:51 → 3WST 18:30 → EDBEDREQTM 18:32 → EDBEDREQ 18:32
PROVIDERS: ADMIT Internal Medicine; ATTEND Internal Medicine
DX: T40.5X1A Poisoning by cocaine, accidental (unintentional), initial encounter (principal); N17.9 Acute kidney failure, unspecified; E87.20 Acidosis, unspecified; C61 Malignant neoplasm of prostate; E87.1 Hypo-osmolality and hyponatremia; E86.0 Dehydration; I16.1 Hypertensive emergency; F11.20 Opioid dependence, uncomplicated; J44.9 Chronic obstructive pulmonary disease, unspecified; F12.20 Cannabis dependence, uncomplicated; E11.65 Type 2 diabetes mellitus with hyperglycemia; D50.9 Iron deficiency anemia, unspecified; I10 Essential (primary) hypertension; B18.2 Chronic viral hepatitis C; K44.9 Diaphragmatic hernia without obstruction or gangrene; E78.00 Pure hypercholesterolemia, unspecified; K80.20 Calculus of gallbladder without cholecystitis without obstruction; K86.1 Other chronic pancreatitis; M17.0 Bilateral primary osteoarthritis of knee; K59.00 Constipation, unspecified; G89.29 Other chronic pain; Z85.46 Personal history of malignant neoplasm of prostate; Z82.49 Family history of ischemic heart disease and other diseases of the circulatory system; Z92.3 Personal history of irradiation; F14.188 Cocaine abuse with other cocaine-induced disorder
CPT/HCPCS: 36415; 71045; 74176; 74177; 76705; 80048; 80053; 80061; 80305; 81003; 82533; 82550; 82570; 82962; 83036; 83605; 83930; 84145; 84153; 84300; 84443; 84484; 85025; 85379; 86705; 86709; 87340; 87804; 93005; 93970; 99291; C9113; J0360; J1650; J1815; J2270; J2405; J2765; J3490; J7030

== ENCOUNTER 2024-07-17 13:23 | Emergency (ER) | payer MEDICARE, MEDICAID ==
[~2024-07-17] VITALS: Ht 175.3 cm; Wt 78.0 kg
[~2024-07-17 13:23] MED LIST changes: +HYDR100T11 PO; -HYDR100T26 PO
[2024-07-17 13:27] VITALS: O2SAT 100
[2024-07-17] MEDS: KETOROLAC 30MG/ML VIAL IM ONE (17:30)
[2024-07-17] MEDS: HYDROCODONE/ACETAMINOPHEN 5/325MG TABLET PO ONE (17:51)
[2024-07-17 17:57] VITALS: BP 160/60; PULSE 62; RESP 14; TEMP 37; O2SAT 100
== END 2024-07-17 17:57 | disposition home or self-care (01) ==
LOC: ER 13:23
DX: R22.31 Localized swelling, mass and lump, right upper limb (principal); E11.9 Type 2 diabetes mellitus without complications; I10 Essential (primary) hypertension; Z79.82 Long term (current) use of aspirin; Z79.899 Other long term (current) drug therapy
CPT/HCPCS: 99283; J1885

== ENCOUNTER 2024-07-21 00:32 | Emergency (ER) | payer MEDICARE, MEDICAID ==
[~2024-07-21] VITALS: Ht 175.3 cm; Wt 78.0 kg
[2024-07-21 00:34] VITALS: BP 130/65; PULSE 70; RESP 18; TEMP 36.7; O2SAT 99
[2024-07-21] MEDS ORDERED: TRANEXAMIC ACID 1,000MG/10ML TP ONE (03:15)
[2024-07-21 03:29] LABS: HEMATOCRIT. 23.5 % (42.0-52.0); HEMOGLOBIN. 7.3 g/dL (14.0-18.0); MEAN CORPUSCULAR HEMOGLOBIN 21.9 pg (28.0-32.0); MEAN CORPUSCULAR VOLUME 70.8 fL (80.0-94.0); PLATELET 338 x1000/uL (130-400); RED BLOOD CELL COUNT 3.32 mill/uL (4.7-6.1); RED CELL DISTRIBUTION WIDTH 16.5 % (11.6-14.6); WHITE BLOOD COUNT 5.2 x1000/uL (4.5-11.0)
[2024-07-21 04:04] LABS: DIFFERENTIAL COMMENT 1
[2024-07-21] MEDS ORDERED: ACETAMINOPHEN 500MG TABLET PO ONE (05:30)
[2024-07-21 08:48] LABS: ANISOCYTOSIS 1+; HYPOCHROMASIA 1+; MICROCYTOSIS 2+; PLATELET ESTIMATE NORMAL
== END 2024-07-21 05:29 | disposition home or self-care (01) ==
LOC: ER 00:32
DX: L98.9 Disorder of the skin and subcutaneous tissue, unspecified (principal); I10 Essential (primary) hypertension; E11.9 Type 2 diabetes mellitus without complications; Z79.899 Other long term (current) drug therapy
CPT/HCPCS: 99283; 85025; 36415; A6449